=== PATIENT | male | born 1995 | race Caucasian/White ===

== ENCOUNTER 2022-01-27 03:41 | Inpatient (IN) | payer MEDICAID ==
[~2022-01-27] VITALS: Ht 182.9 cm; Wt 83.2 kg
[2022-01-27] VITALS (59 sets, daily range): BP systolic 94–112; BP diastolic 43–61
[2022-01-27] MEDS ORDERED: MAGNESIUM 2 G PREMIX 50 ML IV STA (03:51)
[2022-01-27] MEDS ORDERED: IPRATROPIUM BROMIDE (0.02%) 0.5MG/2.5ML NEB HHN STA (03:51)
[2022-01-27] MEDS ORDERED: METHYLPREDNISOLONE SOD SUCC 125 MG/2 ML VIAL IV STA (03:51)
[2022-01-27] MEDS ORDERED: ALBUTEROL (0.083%) 2.5MG/3ML NEB HHN STA (03:51)
[2022-01-27] MEDS ORDERED: SUCCINYLCHOLINE CHLORIDE 200MG/10ML IV ONE ×3 (04:00→08:29)
[2022-01-27] MEDS ORDERED: ETOMIDATE 2MG/ML 10ML VIAL IV ONE ×3 (04:00→08:29)
[2022-01-27] MEDS ORDERED: KETAMINE HCL 50 MG/ML 10ML IV ONE (04:00)
[2022-01-27] MEDS ORDERED: CEFTRIAXONE 1 G PREMIX 50 ML IV ONE (04:00)
[2022-01-27] MEDS ORDERED: AZITHROMYCIN 500MG/250ML 250 ML IV ONE (04:00)
[2022-01-27] MEDS ORDERED: PROPOFOL 10MG/ML 100ML 100 ML IV SCH (04:00)
[2022-01-27] MEDS ORDERED: KETAMINE HCL 50 MG/ML 10ML IV NR (04:15)
[2022-01-27 04:20] LABS: HEMATOCRIT. 45.9 % (42.0-52.0); HEMOGLOBIN. 14.9 g/dL (14.0-18.0); MEAN CORPUSCULAR HEMOGLOBIN 30.1 pg (28.0-32.0); MEAN CORPUSCULAR VOLUME 92.7 fL (80.0-94.0); MEAN PLATELET VOLUME 8.4 fl (7.4-10.4); PLATELET 303 x1000/uL (130-400); RED BLOOD CELL COUNT 4.95 mill/uL (4.7-6.1)
[2022-01-27 04:29] LABS: CHLORIDE 103 mEq/L (98-107)
[2022-01-27 04:31] LABS: INR 1.3; PROTHROMBIN TIME 13.4 sec (9.6-11.0)
[2022-01-27 04:38] LABS: CREATINE KINASE 303 IU/L (39-308); ETHANOL BLOOD < 10 mg/dL
[2022-01-27] MEDS ORDERED: EPINEPHRINE 0.1MG/ML (1:10,000) 10ML SYR IV NR (04:45)
[2022-01-27] MEDS ORDERED: SODIUM CHLORIDE 0.9% 1000ML BAG (SEPSIS BOLUS) IV ONE (04:45)
[2022-01-27 05:09] LABS: PLATELET ESTIMATE NORMAL
[2022-01-27] MEDS ORDERED: FENTANYL CITRATE/PF 2,500 MCG in SODIUM CHLORIDE 0.9% 200 ML IV STA (05:22)
[2022-01-27] MEDS ORDERED: FENTANYL 2500MCG/250ML PMX 250 ML IV NR ×2 (05:30)
[2022-01-27 05:58] LABS: BG BASE EXCESS -3.4 mmol/L (-2.0-2.0); BG CARBOXYHEMOGLOBIN 0.2 % (0.5-1.5); BG DEOXYHEMOGLOBIN 0.6 % (0.0-5.0); BG FRACTION INSPIRED OXYGEN 60; BG METHEMOGLOBIN 0.8 % (0.0-1.5); BG OXYGEN SATURATION 99.4 % (92.0-98.5); BG OXYHEMOGLOBIN 98.4 % (94.0-97.0); BG PCO2 51.8 mmHg (35.0-45.0); BG PH 7.284 (7.350-7.450); BG PO2 274.7 mmHg (75.0-100.0); BG SAMPLE SITE LEFT FEMORAL; BG TOTAL HEMOGLOBIN 16.8 g/dL (12.0-18.0); BG VENT MODE VENT - AC
[2022-01-27 06:31] LABS: CLARITY URINE CLEAR (CLEAR); COLOR URINE YELLOW (YELLOW); KETONES URINE NEGATIVE (NEGATIVE); LEUKOCYTE ESTERASE URINE NEGATIVE (NEGATIVE); NITRITE URINE NEGATIVE (NEGATIVE); OCCULT BLOOD URINE 1+ (NEGATIVE); PH URINE 5.5 (4.5-8.0); PROTEIN URINE 2+ (NEGATIVE); SPECIFIC GRAVITY URINE 1.016 (1.005-1.030); UROBILINOGEN URINE 0.2 E.U./dL (0.2-1.0)
[2022-01-27 06:44] LABS: *AMPHETAMINES SCREEN URINE NEGATIVE (NEGATIVE); *BARBITURATES SCREEN URINE NEGATIVE (NEGATIVE); *BENZODIAZEPINES SCREEN URINE NEGATIVE (NEGATIVE); *COCAINE SCREEN URINE NEGATIVE (NEGATIVE); CANNABINOID URINE SCREEN PRESUMTIVE POSITIVE (NEGATIVE); METHADONE URINE SCREEN NEGATIVE (NEGATIVE); OPIATES URINE SCREEN PRESUMTIVE POSITIVE (NEGATIVE); PHENCYCLIDINE URINE SCREEN NEGATIVE (NEGATIVE)
[2022-01-27] MEDS ORDERED: IPRATROPIUM/ALBUTEROL 0.5-3(2.5)MG/3ML NEB HHN PRN ×2 (07:45→11:15)
[2022-01-27] MEDS ORDERED: LORAZEPAM 0.5MG TABLET PO PRN (07:45)
[2022-01-27] MEDS ORDERED: HYDROCODONE/ACETAMINOPHEN 5/325MG TABLET PO PRN (07:45)
[2022-01-27] MEDS ORDERED: CLONIDINE 0.1MG TABLET PO PRN (07:45)
[2022-01-27] MEDS ORDERED: ACETAMINOPHEN 325MG TABLET PO PRN ×2 (07:45)
[2022-01-27] MEDS ORDERED: DOCUSATE SODIUM 100MG CAPSULE PO PRN (09:00)
[2022-01-27] MEDS ORDERED: EPINEPHRINE 0.1MG/ML (1:10,000) 10ML SYR ONE (09:08)
[2022-01-27] MEDS: FAMOTIDINE 20MG/2ML VIAL IV SCH ×2 (10:19→21:13)
[2022-01-27] MEDS: ENOXAPARIN 40MG/0.4ML SYR SUBCUT SCH (10:20)
[2022-01-27] MEDS ORDERED: ALBU4TAB6 PO (10:57)
[2022-01-27] MEDS ORDERED: MONT-39 MT (10:57)
[2022-01-27] MEDS: IPRATROPIUM/ALBUTEROL 0.5-3(2.5)MG/3ML NEB HHN SCH ×4 (11:34→23:09)
[2022-01-27] MEDS: PROPOFOL 10MG/ML 100ML 100 ML IV PRN ×4 (12:23→23:53)
[2022-01-27] MEDS: METHYLPREDNISOLONE SOD SUCC 40 MG/ML VIAL IV SCH ×2 (12:35→20:02)
[2022-01-27] MEDS: FENTANYL 2500MCG/250ML PMX 250 ML IV PRN ×2 (13:00→20:48)
[2022-01-27] MEDS ORDERED: IOHEXOL-350 100 ML BOTTLE ONE (14:31)
[2022-01-27] MEDS: MONTELUKAST SODIUM 10MG TABLET PO SCH (17:24)
[2022-01-28] VITALS (48 sets, daily range): BP systolic 101–152; BP diastolic 41–98
[2022-01-28] MEDS: IPRATROPIUM/ALBUTEROL 0.5-3(2.5)MG/3ML NEB HHN SCH ×5 (03:12→21:29)
[2022-01-28] MEDS: PROPOFOL 10MG/ML 100ML 100 ML IV PRN ×2 (04:01→07:39)
[2022-01-28] MEDS: METHYLPREDNISOLONE SOD SUCC 40 MG/ML VIAL IV SCH ×3 (04:09→20:11)
[2022-01-28] MEDS: FENTANYL 2500MCG/250ML PMX 250 ML IV PRN ×2 (04:18→12:03)
[2022-01-28 05:58] LABS: BASOPHILS % 0.2 % (0.0-2.0); EOSINOPHILS % 0.1 % (0.0-5.0); HEMOGLOBIN. 12.1 g/dL (14.0-18.0); LYMPHOCYTES % 7.5 % (20.0-50.0); MEAN CORPUSCULAR HEMOGLOBIN 29.6 pg (28.0-32.0); MEAN CORPUSCULAR VOLUME 90.5 fL (80.0-94.0); MEAN PLATELET VOLUME 8.7 fl (7.4-10.4); MONOCYTES % 8.6 % (2.0-8.0); NEUTROPHILS % 83.6 % (40.0-76.0); PLATELET 200 x1000/uL (130-400); RED BLOOD CELL COUNT 4.09 mill/uL (4.7-6.1); RED CELL DISTRIBUTION WIDTH 14.6 % (11.6-14.6)
[2022-01-28 07:42] LABS: CHLORIDE 104 mEq/L (98-107)
[2022-01-28 09:05] LABS: BG BASE EXCESS -2.5 mmol/L (-2.0-2.0); BG CARBOXYHEMOGLOBIN 0.1 % (0.5-1.5); BG DEOXYHEMOGLOBIN 3.7 % (0.0-5.0); BG FRACTION INSPIRED OXYGEN 35; BG HCO3 ACT 21.3 mmol/L (22.0-26.0); BG METHEMOGLOBIN 0.3 % (0.0-1.5); BG OXYGEN SATURATION 96.3 % (92.0-98.5); BG OXYHEMOGLOBIN 95.9 % (94.0-97.0); BG PCO2 33.7 mmHg (35.0-45.0); BG PH 7.418 (7.350-7.450); BG PO2 82.3 mmHg (75.0-100.0); BG SAMPLE SITE LEFT BRACHIAL; BG TOTAL HEMOGLOBIN 13.5 g/dL (12.0-18.0); BG VENT MODE VENT - AC
[2022-01-28] MEDS: FAMOTIDINE 20MG/2ML VIAL IV SCH ×2 (09:06→20:33)
[2022-01-28] MEDS: LORATADINE 10MG TABLET PO SCH (09:06)
[2022-01-28] MEDS: ENOXAPARIN 40MG/0.4ML SYR SUBCUT SCH (09:07)
[2022-01-28] MEDS ORDERED: NALOXONE HCL 0.4MG/ML VIAL IV PRN (11:00)
[2022-01-28] MEDS ORDERED: PROPOFOL 10MG/ML 100ML 100 ML IV PRN (12:00)
[2022-01-28] MEDS: MONTELUKAST SODIUM 10MG TABLET PO SCH (17:03)
[2022-01-28] MEDS: ONDANSETRON HCL 4MG/2ML INJ IV PRN (18:02)
[2022-01-28] MEDS: GUAIFENESIN 200MG TABLET PO PRN (20:34)
[2022-01-29] VITALS (23 sets, daily range): BP systolic 113–151; BP diastolic 47–94
[2022-01-29] MEDS: IPRATROPIUM/ALBUTEROL 0.5-3(2.5)MG/3ML NEB HHN SCH ×6 (00:56→20:00)
[2022-01-29] MEDS: METHYLPREDNISOLONE SOD SUCC 40 MG/ML VIAL IV SCH ×3 (04:15→22:57)
[2022-01-29] MEDS: ONDANSETRON HCL 4MG/2ML INJ IV PRN (04:15)
[2022-01-29 06:12] LABS: HEMATOCRIT. 41.1 % (42.0-52.0); HEMOGLOBIN. 13.5 g/dL (14.0-18.0); MEAN CORPUSCULAR HEMOGLOBIN 30.2 pg (28.0-32.0); MEAN PLATELET VOLUME 9.3 fl (7.4-10.4); PLATELET 184 x1000/uL (130-400); RED BLOOD CELL COUNT 4.46 mill/uL (4.7-6.1); RED CELL DISTRIBUTION WIDTH 14.8 % (11.6-14.6)
[2022-01-29 07:17] LABS: CHLORIDE 106 mEq/L (98-107)
[2022-01-29 09:00] LABS: BG BASE EXCESS 2.5 mmol/L (-2.0-2.0); BG CARBOXYHEMOGLOBIN 0.4 % (0.5-1.5); BG DEOXYHEMOGLOBIN 6.4 % (0.0-5.0); BG FRACTION INSPIRED OXYGEN 21; BG HCO3 ACT 27.3 mmol/L (22.0-26.0); BG METHEMOGLOBIN 0.2 % (0.0-1.5); BG OXYGEN SATURATION 93.6 % (92.0-98.5); BG PCO2 42.9 mmHg (35.0-45.0); BG PH 7.421 (7.350-7.450); BG PO2 66.6 mmHg (75.0-100.0); BG SAMPLE SITE LEFT BRACHIAL; BG TOTAL HEMOGLOBIN 13.8 g/dL (12.0-18.0); BG VENT MODE ROOM AIR
[2022-01-29] MEDS: ENOXAPARIN 40MG/0.4ML SYR SUBCUT SCH (09:38)
[2022-01-29] MEDS: LORATADINE 10MG TABLET PO SCH (09:38)
[2022-01-29] MEDS: FAMOTIDINE 20MG/2ML VIAL IV SCH ×2 (09:38→22:57)
[2022-01-29] MEDS: MONTELUKAST SODIUM 10MG TABLET PO SCH (17:38)
[2022-01-29 20:27] LABS: PLATELET ESTIMATE NORMAL
[2022-01-30] VITALS (17 sets, daily range): BP systolic 111–150; BP diastolic 54–89
[2022-01-30] MEDS: IPRATROPIUM/ALBUTEROL 0.5-3(2.5)MG/3ML NEB HHN SCH ×6 (00:19→21:00)
[2022-01-30] MEDS: METHYLPREDNISOLONE SOD SUCC 40 MG/ML VIAL IV SCH ×3 (04:34→20:53)
[2022-01-30] MEDS: GUAIFENESIN 200MG TABLET PO PRN (04:37)
[2022-01-30 05:47] LABS: HEMATOCRIT. 41.9 % (42.0-52.0); HEMOGLOBIN. 14.1 g/dL (14.0-18.0); MEAN CORPUSCULAR HEMOGLOBIN 30.2 pg (28.0-32.0); MEAN CORPUSCULAR VOLUME 89.7 fL (80.0-94.0); MEAN PLATELET VOLUME 8.1 fl (7.4-10.4); PLATELET 210 x1000/uL (130-400); RED BLOOD CELL COUNT 4.67 mill/uL (4.7-6.1); RED CELL DISTRIBUTION WIDTH 14.7 % (11.6-14.6)
[2022-01-30 05:56] LABS: CHLORIDE 103 mEq/L (98-107)
[2022-01-30] MEDS: LORATADINE 10MG TABLET PO SCH (09:42)
[2022-01-30] MEDS: ENOXAPARIN 40MG/0.4ML SYR SUBCUT SCH (09:43)
[2022-01-30] MEDS: FAMOTIDINE 20MG/2ML VIAL IV SCH ×2 (09:43→20:53)
[2022-01-30 11:10] LABS: PLATELET ESTIMATE NORMAL
[2022-01-30] MEDS ORDERED: THROAT LOZENGES-BENZOCAINE/MENTH/CETYLPYRD CL LOZENGES MM PRN (12:15)
[2022-01-30] MEDS ORDERED: GUAIFENESIN-DM 200MG-20MG/10ML UDC PO PRN (14:00)
[2022-01-30] MEDS: MONTELUKAST SODIUM 10MG TABLET PO SCH (17:53)
[2022-01-31] VITALS: BP 116/72
[2022-01-31] MEDS: IPRATROPIUM/ALBUTEROL 0.5-3(2.5)MG/3ML NEB HHN SCH ×5 (00:26→15:40)
[2022-01-31 04:00] VITALS: BP 105/62
[2022-01-31] MEDS: METHYLPREDNISOLONE SOD SUCC 40 MG/ML VIAL IV SCH ×2 (04:13→12:01)
[2022-01-31 08:00] VITALS: BP 105/65
[2022-01-31 08:42] LABS: BASOPHILS % 0.2 % (0.0-2.0); EOSINOPHILS % 0.1 % (0.0-5.0); HEMATOCRIT. 46.4 % (42.0-52.0); HEMOGLOBIN. 15.8 g/dL (14.0-18.0); LYMPHOCYTES % 7.8 % (20.0-50.0); MEAN CORPUSCULAR HEMOGLOBIN 30.5 pg (28.0-32.0); MEAN CORPUSCULAR VOLUME 89.8 fL (80.0-94.0); MEAN PLATELET VOLUME 8.4 fl (7.4-10.4); MONOCYTES % 6.6 % (2.0-8.0); NEUTROPHILS % 85.3 % (40.0-76.0); PLATELET 238 x1000/uL (130-400); RED BLOOD CELL COUNT 5.17 mill/uL (4.7-6.1); RED CELL DISTRIBUTION WIDTH 14.4 % (11.6-14.6)
[2022-01-31] MEDS: FAMOTIDINE 20MG/2ML VIAL IV SCH (08:55)
[2022-01-31] MEDS: LORATADINE 10MG TABLET PO SCH (08:55)
[2022-01-31] MEDS: ENOXAPARIN 40MG/0.4ML SYR SUBCUT SCH (08:56)
[2022-01-31 09:17] LABS: CHLORIDE 101 mEq/L (98-107)
[2022-01-31 12:00] VITALS: BP 128/92
[2022-01-31] MEDS ORDERED: ALBU6.7H9 INH (13:09)
[2022-01-31] MEDS ORDERED: IPRA3AMP9 HHN (13:09)
[2022-01-31] MEDS ORDERED: CLAR10 PO (13:09)
[2022-01-31] MEDS ORDERED: MONT10TA21 PO (13:09)
[2022-01-31 15:38] VITALS: BP 128/92
[2022-02-01] MEDS ORDERED: PREDNISONE 20MG TABLET PO SCH (08:10)
== END 2022-01-31 16:11 | disposition home or self-care (01) | DRG 133 ==
LOC: ER 03:41 → EDBEDREQSVC 04:29 → EDBEDREQ 04:29 → CANRESERV 07:26 → ENRESERV 07:26 → CVICU 07:33 → 7WST 01-30 15:29
PROVIDERS: ADMIT Internal Medicine; ATTEND Internal Medicine
PROC: 5A1945Z Respiratory Ventilation, 24-96 Consecutive Hours (ICD-10-PCS; principal; 2022-01-27)
PROC: 0BH17EZ Insertion of Endotracheal Airway into Trachea, Via Natural or Artificial Opening (ICD-10-PCS; 2022-01-27)
DX: J96.01 Acute respiratory failure with hypoxia (principal); G93.41 Metabolic encephalopathy; E87.2 Acidosis; J45.901 Unspecified asthma with (acute) exacerbation; Z20.822 Contact with and (suspected) exposure to COVID-19; I16.0 Hypertensive urgency; F41.1 Generalized anxiety disorder; R80.9 Proteinuria, unspecified; F12.90 Cannabis use, unspecified, uncomplicated; Z79.899 Other long term (current) drug therapy; Z78.1 Physical restraint status
CPT/HCPCS: 31500; 36415; 36600; 71045; 71275; 80048; 80053; 80305; 80320; 81003; 82375; 82550; 82805; 82962; 83605; 83880; 84145; 84478; 84484; 85025; 85379; 87070; 87426; 92610; 93005; 94002; 94003; 94640; 97162; 99291; C9803; J0330; J0456; J1650; J2405; J2704; J2920; J2930; J3010; J3475; J3490; J7030; J7050; Q9967; G0480